=== PATIENT | female | born 1960 | race Caucasian/White ===

== ENCOUNTER 2022-03-15 06:58 | Day surgery (SDC) | payer OTHER ==
[2022-03-15] MEDS ORDERED: Propofol 200 MG/20 ML SDV IV ONE (06:59)
[2022-03-15] MEDS ORDERED: Lactated Ringers 1,000 ML IV SCH (07:00)
[2022-03-15] MEDS ORDERED: Sodium Chloride 0.9% 10 ML Syringe FLUSH PRN (07:00)
== END 2022-03-15 09:17 | disposition home or self-care (01) ==
LOC: FB.SDS 06:58
PROVIDERS: ATTEND Surgery
DX: Z12.11 Encounter for screening for malignant neoplasm of colon (principal); K57.30 Diverticulosis of large intestine without perforation or abscess without bleeding; Z80.0 Family history of malignant neoplasm of digestive organs; Z88.2 Allergy status to sulfonamides; Z98.890 Other specified postprocedural states
CPT/HCPCS: 00812; 45378; J2704; J7120